=== PATIENT | male | born 1960 | race American Indian/Alaskan Native ===

== ENCOUNTER 2017-01-26 10:58 | Emergency (ER) | payer MEDICAID ==
[2017-01-26 11:43] VITALS: BP 123/67; PULSE 72; RESP 18; TEMP 99; O2SAT 99; BMI 23.4
[2017-01-26] MEDS ORDERED: Naproxen 550 mg Tab PO STA (11:46)
--- NOTE | 2017-01-26 11:50 | ED PDOC ---
Arrival/HPI - General Chief Complaint: Finger,Hand,&Wrist Time Seen by Provider: 01/26/17 11:42 Historian: Patient - History of Present Illness Narrative History of Present Illness (Text): 01/26/17 11:47 56 year old male presents to the emergency department complaining of right hand swelling since yesterday. Denies trauma or injury. Denies fevers. pt states no pain. pt states "i just wanted to get it checked out" PMD: Dr. Langford Time/Duration: 24 hours Symptom Onset: Gradual Symptom Course: Unchanged Associated Symptoms (Text): None Past Medical History - Provider Review Nursing Documentation Reviewed: Yes - Infectious Disease Hx of Infectious Diseases: None - Tetanus Immunization Tetanus Immunization: Unknown - Cardiac Hx Cardiac Disorders: Yes Hx Hypertension: Yes - Pulmonary Hx Respiratory Disorders: No - Neurological Hx Neurological Disorder: Yes Other/Comment: carotid aneurysm - HEENT Hx HEENT Disorder: Yes Hx Deafness: Yes (RIGHT EAR) - Renal Hx Renal Disorder: No - Endocrine/Metabolic Hx Endocrine Disorders: No - Hematological/Oncological Hx Blood Transfusions: No Hx Blood Transfusion Reaction: No - Integumentary Hx Dermatological Disorder: No - Musculoskeletal/Rheumatological Hx Musculoskeletal Disorders: Yes (HERNIATED DISCS 2) - Gastrointestinal Hx Gastrointestinal Disorders: No (HEMORRHOIDS) - Genitourinary/Gynecological Hx Genitourinary Disorders: Yes Hx Prostate Problems: Yes (BPH) - Psychiatric Hx Psychophysiologic Disorder: Yes Hx Anxiety: Yes Hx Panic Disorder: Yes Hx Substance Use: No (DENIES; TAKES ONLY RX FOR PAIN) - Surgical History Other/Comment: angioplasty femoral angiogram balloon artherectomy r leg blood clot 10/10/15 - Anesthesia Hx Anesthesia: Yes Hx Anesthesia Reactions: No Hx Malignant Hyperthermia: No - Suicidal Assessment Feels Threatened In Home Enviroment: No Family/Social History - Physician Review Nursing Documentation Reviewed: Yes Family/Social History: Unknown Family HX Smoking Status: Current Some Days Smoker Hx Alcohol Use: Yes (OCCASIONALLY) Hx Substance Use: No (DENIES; TAKES ONLY RX FOR PAIN) Substance used: marijuana Hx Substance Use Treatment: No Allergies/Home Meds Allergies/Adverse Reactions: Allergies No Known Allergies Allergy (Verified 01/26/17 11:43) Home Medications: Home Meds Medication Instructions Recorded Confirmed Alprazolam [Xanax] 0.5 mg PO TID 11/01/12 01/26/17 Tamsulosin [Flomax] 0.4 mg PO QAM 11/01/12 01/26/17 Amlodipine Besylate [Norvasc] 10 mg PO QAM 10/09/15 01/26/17 Clopidogrel [Plavix] 75 mg PO QAM 10/09/15 01/26/17 Oxycodone HCl 15 mg PO QID 10/09/15 01/26/17 Cholecalciferol [Vitamin D 1000 IU] 50,000 unit PO QWK 04/05/16 01/26/17 Review of Systems - Review of Systems Musculoskeletal: Other (Right hand swelling) Physical Exam Vital Signs Reviewed: Yes Vital Signs Temp Pulse Resp BP Pulse Ox 01/26/17 11:43 99.0 F 72 18 123/67 99 Temperature: Afebrile Blood Pressure: Normal Pulse: Regular Respiratory Rate: Normal Appearance: Positive for: Well-Appearing, Non-Toxic, Comfortable Pain Distress: None Mental Status: Positive for: Alert and Oriented X 3 - Systems Exam Upper Extremity: Present: Swelling (Minimal right hand swelling). No: Tenderness, Erythema Medical Decision Making ED Course and Treatment: Impression: 56 year old male presents to the emergency department complaining of right hand swelling since yesterday. Differential Diagnosis included but are not limited to: Sprain vs strain Plan: -- XR right hand -- Naproxen -- Reassess and disposition Progress Notes: 01/26/17 12:32 xr neg as rread by me. pt well appearing, no other complaint. advise outpt follow up and return precautions - RAD Interpretation Radiology Orders: 01/26/17 11:46 HAND RIGHT 3 VIEWS [RAD] Stat - Medication Orders Current Medication Orders: Discontinued Medications Naproxen (Anaprox Ds) 550 mg PO STAT STA Stop: 01/26/17 11:47 Last Admin: 01/26/17 12:28 Dose: 550 mg - Scribe Statement The provider has reviewed the documentation as recorded by the Kirstin Rodriguez Provider Scribe Attestation: All medical record entries made by the Scribe were at my direction and personally dictated by me. I have reviewed the chart and agree that the record accurately reflects my personal performance of the history, physical exam, medical decision making, and the department course for this patient. I have also personally directed, reviewed, and agree with the discharge instructions and disposition. Disposition/Present on Arrival - Present on Arrival Any Indicators Present on Arrival: No History of DVT/PE: No History of Uncontrolled Diabetes: No Urinary Catheter: No History of Decub. Ulcer: No History Surgical Site Infection Following: None - Disposition Have Diagnosis and Disposition been Completed?: No Diagnosis: Hand pain Disposition: HOME/ ROUTINE Disposition Time: 12:33 Condition: STABLE Discharge Instructions (ExitCare): Hand Sprain (ED) Additional Instructions: please follow up with your doctor. return to emergency room with worsening symptoms or concerns. Prescriptions: Naproxen [Naprosyn] 500 mg PO BID PRN #14 tablet PRN Reason: Pain, Mild (1-3) Referrals: Martín Langford MD [Primary Care Provider] - Follow up with primary [facility] [place] [Outside] - Follow up with primary David Craig MD [Staff Provider] - Follow up with primary
--- NOTE | 2017-01-26 13:17 | RAD ---
PROCEDURE: Right Hand Radiographs. HISTORY: hand pain COMPARISON: None. FINDINGS: BONES: Normal. No fracture. JOINTS: Normal. No osteoarthritic changes. SOFT TISSUES: Normal. OTHER FINDINGS: None. IMPRESSION: Normal right hand radiographs.
== END 2017-01-26 13:04 | disposition home or self-care (01) ==
LOC: ED 10:58
DX: M79.641 Pain in right hand (principal)

== ENCOUNTER 2018-09-03 12:21 | Emergency (ER) | payer MEDICAID ==
[2018-09-03 12:29] VITALS: BMI 23.3
[2018-09-03 12:39] VITALS: RESP 20; TEMP 98; O2SAT 99
[2018-09-03 13:32] VITALS: BP 134/53; PULSE 79
--- NOTE | 2018-09-03 15:01 | ED PDOC ---
Arrival/HPI - General Chief Complaint: Substance Abuse Time Seen by Provider: 09/03/18 12:22 - History of Present Illness Narrative History of Present Illness (Text): 09/03/18 12:30 A 58 year old male, whose past medical history includes hypertension, CAD, and anxiety, presents to the emergency department brought in by EMS for possible overdose from earlier today. EMS reports patient was found unresponsive by neighbors and was given narcan with positive results. In the ER, patient is awake and alert. Patient states he takes oxycodon and oxycontin for pain and too both this morning. Patient states this is not the first time this has happened. Patient denies any elicit drug use. Patient denies any fever, chills, shortness of breath, chest pain, diarrhea, nausea, vomiting, urinary symptoms, back pain, neck pain, headache, dizziness, or any other complaints. PMD: Dr. Langford Time/Duration: 4-6 hours Symptom Onset: Gradual Symptom Course: Unchanged Activities at Onset: Light Context: Street Past Medical History - Provider Review Nursing Documentation Reviewed: Yes - Infectious Disease Hx of Infectious Diseases: None - Tetanus Immunization Tetanus Immunization: Unknown - Cardiac Hx Cardiac Disorders: Yes Hx Hypertension: Yes - Pulmonary Hx Respiratory Disorders: No - Neurological Hx Neurological Disorder: Yes Other/Comment: carotid aneurysm - HEENT Hx HEENT Disorder: Yes Hx Deafness: Yes (RIGHT EAR) - Renal Hx Renal Disorder: No - Endocrine/Metabolic Hx Endocrine Disorders: No - Hematological/Oncological Hx Blood Transfusions: No Hx Blood Transfusion Reaction: No - Integumentary Hx Dermatological Disorder: No - Musculoskeletal/Rheumatological Hx Musculoskeletal Disorders: Yes (HERNIATED DISCS 2) - Gastrointestinal Hx Gastrointestinal Disorders: No (HEMORRHOIDS) - Genitourinary/Gynecological Hx Genitourinary Disorders: Yes Hx Prostate Problems: Yes (BPH) - Psychiatric Hx Psychophysiologic Disorder: Yes Hx Anxiety: Yes Hx Panic Disorder: Yes Hx Substance Use: No (DENIES; TAKES ONLY RX FOR PAIN) - Surgical History Other/Comment: angioplasty femoral angiogram balloon artherectomy r leg blood clot 10/10/15 - Anesthesia Hx Anesthesia: Yes Hx Anesthesia Reactions: No Hx Malignant Hyperthermia: No - Suicidal Assessment Feels Threatened In Home Enviroment: No Family/Social History - Physician Review Nursing Documentation Reviewed: Yes Family/Social History: No Known Family HX Smoking Status: Current Some Days Smoker Hx Alcohol Use: Yes (OCCASIONALLY) Hx Substance Use: No (DENIES; TAKES ONLY RX FOR PAIN) Substance used: marijuana Hx Substance Use Treatment: No Allergies/Home Meds Allergies/Adverse Reactions: Allergies No Known Allergies Allergy (Verified 01/26/17 11:43) Home Medications: Home Meds Medication Instructions Recorded Confirmed Alprazolam [Xanax] 0.5 mg PO TID 11/01/12 01/26/17 Tamsulosin [Flomax] 0.4 mg PO QAM 11/01/12 01/26/17 Amlodipine Besylate [Norvasc] 10 mg PO QAM 10/09/15 01/26/17 Clopidogrel [Plavix] 75 mg PO QAM 10/09/15 01/26/17 Oxycodone HCl 15 mg PO QID 10/09/15 01/26/17 Cholecalciferol [Vitamin D 1000 IU] 50,000 unit PO QWK 04/05/16 01/26/17 Review of Systems - Physician Review All systems were reviewed & negative as marked: Yes - Review of Systems Constitutional: absent: Fevers, Night Sweats Cardiovascular: absent: Syncope Gastrointestinal: absent: Nausea, Vomiting Genitourinary Male: absent: Urinary Output Changes Musculoskeletal: absent: Back Pain, Neck Pain Neurological: absent: Headache, Dizziness Physical Exam Vital Signs Reviewed: Yes Vital Signs Temp Pulse Resp BP Pulse Ox 09/03/18 13:31 98 F 79 20 134/53 L 99 09/03/18 12:33 98 F 91 H 20 132/91 H 99 09/03/18 12:28 97.6 F 88 19 132/91 H 98 Temperature: Afebrile Blood Pressure: Hypertensive Pulse: Regular Respiratory Rate: Normal - Systems Exam Head: Present: Atraumatic, Normocephalic Pupils: Present: PERRL Extroacular Muscles: Present: EOMI Conjunctiva: Present: Normal Mouth: Present: Moist Mucous Membranes Respiratory/Chest: Present: Clear to Auscultation, Good Air Exchange. No: Respiratory Distress, Accessory Muscle Use Cardiovascular: Present: Regular Rate and Rhythm, Normal S1, S2. No: Murmurs Abdomen: No: Tenderness, Distention, Peritoneal Signs Back: Present: Normal Inspection Upper Extremity: Present: Normal Inspection. No: Cyanosis, Edema Lower Extremity: Present: Normal Inspection. No: Edema Neurological: Present: GCS=15, CN II-XII Intact, Speech Normal Skin: Present: Warm, Dry, Normal Color. No: Rashes Psychiatric: Present: Alert, Oriented x 3, Normal Insight, Normal Concentration Medical Decision Making ED Course and Treatment: 09/03/18 12:30 Impression: 58 year old male presenting to the emergency department for possible overdose. Plan: -- Reassess and disposition Prior Visits: Notes and results from previous visits were reviewed. Progress Notes: 09/03/18 12:50 Leaving Against Medical Advice (AMA): The patient is choosing to leave against medical advice. I have personally explained to the patient that choosing to do so may result in permanent bodily harm or . I have discussed at great length that without further evaluation and monitoring there may be unforeseen circumstances and/or deterioration causing permanent bodily harm or as a result of their choice. The patient is alert, oriented, and shows the mental capacity to make clear decisions regarding the patients health care at this time. The patient continues to wish to leave against medical advice. In light of the patients decision to leave against medical advice, follow-up has been arranged and the patient is aware of the importance to following up as instructed. The patient has been advised that they should return to the emergency room immediately if they change their mind at any time, or if their condition begins to change or worsen in any way. - Scribe Statement The provider has reviewed the documentation as recorded by the Kirstin Chatman All medical record entries made by the Scribe were at my direction and personally dictated by me. I have reviewed the chart and agree that the record accurately reflects my personal performance of the history, physical exam, medical decision making, and the department course for this patient. I have also personally directed, reviewed, and agree with the discharge instructions and disposition. Disposition/Present on Arrival - Present on Arrival Any Indicators Present on Arrival: No History of DVT/PE: No History of Uncontrolled Diabetes: No Urinary Catheter: No History of Decub. Ulcer: No History Surgical Site Infection Following: None - Disposition Have Diagnosis and Disposition been Completed?: Yes Diagnosis: Opiate use Disposition: AGAINST MEDICAL ADVICE Disposition Time: 12:50 Condition: UNKNOWN Discharge Instructions (ExitCare): Prescription Drug Misuse Additional Instructions: ASHELY SARAVIA, thank you for letting us take care of you today. The emergency medical care you received today was directed at your acute symptoms. If you were prescribed any medication, please fill it and take as directed. It may take several days for your symptoms to resolve. Return to the Emergency Department if your symptoms worsen, do not improve, or if you have any other problems. Please contact your doctor or call one of the physicians/clinics you have been referred to that are listed on the Patient Visit Information form that is included in your discharge packet. Bring any paperwork you were given at discharge with you along with any medications you are taking to your follow up visit. Our treatment cannot replace ongoing medical care by a primary care provi patti outside of the emergency department. Thank you for allowing the [facility] team to be part of your care today. YOU SIGNED OUT AGAINST MEDICAL ADVISE. PLEASE FOLLOW UP WITH YOUR PRIMARY CARE DOCTOR SOON POSSIBLE. RETURN TO THE EMERGENCY ROOM IF YOU HAVE CONCERNS. Referrals: [facility] Blake Remikie, [Non-Staff] - Follow up with primary Forms: [employer] (Japanese)
== END 2018-09-03 13:31 | disposition left against medical advice (07) ==
LOC: ED 12:21
DX: F11.90 Opioid use, unspecified, uncomplicated (principal); I10 Essential (primary) hypertension; I25.10 Atherosclerotic heart disease of native coronary artery without angina pectoris